=== PATIENT | female | born 1940 | race Caucasian/White ===

== ENCOUNTER 2018-06-25 05:26 | Inpatient (IN) ==
--- NOTE | 2018-06-24 17:02 | MH ---
cc: Keaton Schwartz MD DATE OF ADMISSION: 06/25/2018 The patient will be admitted to the hospital on 06/25/2018. ADMITTING DIAGNOSIS: Full-thickness rotator cuff tear of the left shoulder. HISTORY OF PRESENT ILLNESS: The patient is a 77-year-old white female who has experienced at least a 3-month history of pain involving the left shoulder area. She had originally associated the onset of her symptoms with history of blunt trauma when she was walking through a doorway and hit the side of the door along the anterior aspect of the left shoulder, noting the immediate onset of pain. She did not fall with that event. She thereafter conformed to conservative management, which included use of BenGay to the shoulder area and taking Tylenol, neither of which afforded her any long-term benefit. Because of her lingering symptoms, she subsequently was seen in the office in March of this year and at that time advised that she had received at least 1 course of acupuncture therapy did not prove to have any appreciable benefit. Her x-ray studies at the time of her office evaluation were without evidence of any acute bony abnormality. The patient was diagnosed as having a bursitis of her left shoulder for which she received a local steroid injection and was thereafter followed on an outpatient basis. Unfortunately, her symptoms lingered and she subsequently underwent an MRI scan evaluation for further evaluation of her shoulder symptoms. Findings at that time identified a massive full-thickness rotator cuff tear involving essentially all of the supraspinatus and infraspinatus tendons. There was associated atrophy of the muscle bellies and moderate to severe osteoarthritis of the glenohumeral joint, a chronic degenerative appearing tear of the labrum and a torn long head biceps tendon retracted to the level of the mid groove, a type 3 acromion with moderate subacromial spurring and moderate osteoarthritis of the acromioclavicular joint was noted. The findings of the scan were reviewed and treatment options discussed with the patient at that time. The pros and cons of continuing with conservative management versus operative intervention involving a reverse shoulder arthroplasty were outlined in detail. Emphasis was made regarding the fact that the decision to proceed with surgery would be left entirely to the patient's discretion. The patient readily admitted that she was experiencing considerable incapacitation regarding all activities of daily living and was desirous of proceeding with surgery as discussed. In compliance with her wishes, she was scheduled for admission at this time in order that the above be accomplished. She is left hand dominant. PAST MEDICAL HISTORY: Hospitalizations and surgeries have included bilateral cataract excision, partial bowel resection with temporary colostomy, cholecystectomy, colonoscopy, D and C, bilateral total knee arthroplasties, and excision of a benign cyst of the right breast. CURRENT MEDICATIONS: 1. Omeprazole 20 mg daily. 2. Pravastatin 40 mg daily. 3. Stool softener daily. 4. Multivitamin tablet daily. 5. Low-dose Tata aspirin daily. 6. Vitamin B12. 7. Calcium 600 mg daily. 8. Iron supplement 45 mg daily. ALLERGIES: THE PATIENT DESCRIBES A DRUG ALLERGY TO PENICILLIN, WHICH HAS CAUSED ITCHING. SHE HAS HAD A REACTION TO TETANUS, CAUSING RASH AND SWELLING AND SOME DEGREE OF ITCHING AND SHE HAS A FOOD INTOLERANCE TO EGGS, WHICH HAS BEEN ASSOCIATED WITH NAUSEA. REVIEW OF SYSTEMS: She does wear glasses for reading purposes. Denies headache, seizure, or syncope. No sinus congestion. Auditory acuity intact. No tinnitus. No bleeding gums or dysphagia. No cough, shortness of breath, upper respiratory infection, pneumonia, or tuberculosis. No angina or heart disease. Appetite is good. She does experience occasional constipation treated with various [id number] medications. No hepatitis. Status post cholecystectomy. Positive history of hemorrhoids. She has had previous urinary tract infection, no kidney stones. No fractures. No psychiatric illness. Remaining review of systems is unremarkable and noncontributory. FAMILY HISTORY: 57 years, is 79 years of age, in good health. Two sons and 2 daughters indicated to be in good health. Family history is positive for hypertension, Alzheimer's disease and stroke. SOCIAL HISTORY: The patient completed a high school education with additional college credits. She has been a smoker for approximately 58 years, averaging less than 1 pack per day. Ethanol consumption socially. PHYSICAL EXAMINATION: VITAL SIGNS: Height 5 feet 4-1/2 inches, weight 174 pounds. GENERAL: An alert, oriented, and responsive 77-year-old white female who sits quietly upon the examination table with no obvious distress. HEAD, EARS, EYES, NOSE AND THROAT: Pupils are equally round and reactive to light. Extraocular movements full. Sclerae are clear. External nares clear. External auditory canals clear. Dental intact with temporary retainer in the maxillary region. Mucous membranes pink and moist. Pharynx clear. NECK: Supple. Active range of motion. No appreciable pain. Carotid pulse is palpable bilaterally. Trachea midline. Thyroid without thyroid enlargement. LUNGS: Clear to auscultation and percussion. CHEST: No CVA tenderness. BACK: No discomfort throughout the dorsolumbar spine. HEART: Regular irregular rhythm with a grade 2/6 systolic murmur heard best at the right second intercostal space. ABDOMEN: Soft, nontender. Bowel sounds present. PELVIC: Per primary care physician. EXTREMITIES: Left shoulder: There is mild tenderness about the anterior and superior aspect of the left shoulder without palpable deformity. The patient is unable to actively elevate her left hand above her head level secondary to pain about the shoulder joint. Internal rotation to the posterior waist level. Cross arm positioning of left hand to the right shoulder with discomfort towards the extremes of motion. No sensation of crepitation or instability about the glenohumeral joint. Drop arm test positive. Weakness of external rotation. Dairy Quality Assurance Officer strength intact. Sensory intact. NEUROLOGIC: Cranial nerves 2-12 grossly intact. IMPRESSION: Full-thickness rotator cuff tear, left shoulder. PLAN: Left reverse shoulder arthroplasty. The nature of the planned surgical procedure, the potential complications and risks associated, the expectations of surgery and the consent form have been thoroughly reviewed with the patient at this time. Luz Maria has indicated her full understanding regarding all of the above and given consent to proceed with treatment as outlined. Medical evaluation and clearance for surgery completed by her primary care physician, Dr. Giuseppe Ortez. MD ADRIANE Ervin/es , 04:36 PM , 04:50 PM
[~2018-06-25 05:26] MED LIST: Vancomycin Inj 1,000 MG in Sodium Chlor 0.9% Inj 250 ML IV.SIG PRN
[2018-06-25] MEDS ORDERED: Sodium Chlor 0.9% Inj 250 ML ONE ×2 (06:12→06:14)
[2018-06-25] MEDS ORDERED: Sugammadex Inj 200 MG/2 ML Vial IV.PUSH ONE (06:20)
[2018-06-25] MEDS ORDERED: Chlorhexidine Gluconate 2% 1 Pack (2 Cloths) TOPICAL ONE (06:41)
[2018-06-25] MEDS ORDERED: Metoprolol Tartrate 25 MG Tablet PO ONE (06:41)
[2018-06-25] MEDS ORDERED: Tranexamic Acid Inj 800 MG in Sodium Chlor 0.9% Inj 100 ML IV.SIG SCH ×2 (07:00→10:00)
[2018-06-25] MEDS ORDERED: Sodium Chlor 0.9% Inj 500 ML IV.SIG SCH (07:00)
--- NOTE | 2018-06-25 07:40 | ECG ---
Date Performed: 06/25/2018 Time Performed: 06:24:32 PTAGE: 77 years EKG: Sinus rhythm with frequent PVCs Abnormal ECG NO PREVIOUS TRACING DOCTOR: Jason Weir Interpretating Date/Time 06/25/2018 07:40:02
[2018-06-25] MEDS ORDERED: fentaNYL Citrate Inj 100 MCG/2 ML Ampul ONE (09:46)
[2018-06-25] MEDS ORDERED: Morphine Inj 4 MG/ML Vial IV.PUSH PRN (09:51)
[2018-06-25] MEDS ORDERED: Morphine Inj 4 MG/ML Vial IV.SIG ONE (09:51)
[2018-06-25] MEDS ORDERED: Acetaminophen 325 MG Tablet PO PRN (09:51)
[2018-06-25] MEDS ORDERED: Zolpidem Tartrate 5 MG Tablet PO PRN (09:51)
[2018-06-25] MEDS ORDERED: Naloxone Inj 0.4 MG/ML Vial IV.PUSH PRN (09:51)
[2018-06-25] MEDS ORDERED: Tranexamic Acid Inj 1,000 MG in Sodium Chlor 0.9% Inj 100 ML IV.SIG ONE (09:51)
[2018-06-25] MEDS ORDERED: Bisacodyl 10 MG Supp RECTAL PRN (09:51)
[2018-06-25] MEDS ORDERED: Aluminum/Magnesium/Simethacone Susp 30 ML UDC PO PRN (09:51)
[2018-06-25] MEDS ORDERED: Post-op Orders (for Pharmacy) OTHER STA (09:51)
--- NOTE | 2018-06-25 09:56 | P.DCO ---
- Diagnosis (1) Full thickness rotator cuff tear Status: Acute - Occupational Therapy Order: Evaluate and treat, Improve ADL, Gross motor coordination, Fine motor coordination - Home Health Nursing Order: Wound care and dressing changes, Nursing assessment with vital signs - Home Health Aide Order: To assist in: Bathing and personal care, digital press operator and meal prep - Case Management Consult Case Management Consult-Home Health: Yes - Certification I have seen patient Radha Ang on 06/25/18. My clinical findings support the need for the requested home health care services because: Limited ability to care for self, High risk of falls I certify that my clinical findings support that this patient is homebound because: Post-op weakness, Unsteady gait/balance, Unsafe to leave home unassisted (1) Full thickness rotator cuff tear Qualifiers: Laterality: left Qualified Code(s): M75.122 - Complete rotator cuff tear or rupture of left shoulder, not specified as traumatic
--- NOTE | 2018-06-25 10:21 | MP ---
cc: Keaton Schwartz MD DATE OF OPERATION: 06/25/2018 PREOPERATIVE DIAGNOSIS: Full-thickness rotator cuff tear of the left shoulder. POSTOPERATIVE DIAGNOSIS: Full-thickness rotator cuff tear of the left shoulder. PROCEDURE PERFORMED: Left reverse shoulder arthroplasty. SURGEON: Keaton Schwartz MD ANESTHESIA: General endotracheal. INDICATIONS: A 77-year-old white female with a 3-month history of progressive pain of the left shoulder. She had noted the onset of her symptoms following a history of blunt trauma, when she was walking through a doorway, and hit the side of the door along the anterior aspect of her left shoulder, noting the immediate onset of pain. She did not fall with that event. She, thereafter, conformed to conservative management, which included use of Orville-Ji and taking Tylenol, neither of which afforded her any long-term benefit. Because of her lingering symptoms, she was subsequently seen in the office in March of this year, and at that time, she noted that she had received at least 1 course of acupuncture therapy, in addition to treatment as noted above. She remains symptomatic with pain. Her x-ray studies were without evidence of any acute bony abnormality. The patient was diagnosed as having bursitis of the left shoulder, for which she received a local steroid injection, and was thereafter followed on an outpatient basis. Her symptoms lingered and she later underwent an MRI scan, the results of which identified a massive full-thickness rotator cuff tear involving essentially all of the supraspinatus and infraspinatus tendons with associated atrophy of the muscle bellies, and a moderate to severe osteoarthritis of the glenohumeral joint, a chronic degenerative-appearing tear of the labrum, and torn long head biceps tendon retracted to the level of the mid groove, a type 3 acromion with moderate subacromial spurring, and moderate osteoarthritis of the acromioclavicular joint. Findings of the scan reviewed and treatment options discussed. The pros and cons of continuing with conservative management versus operative intervention involving a reverse shoulder arthroplasty were outlined in detail. Emphasis was made regarding the fact that the decision to proceed with surgery would be left entirely to the patient's discretion. The patient readily admitted that she was experiencing considerable incapacitation regarding all activities of daily living, and was desirous of proceeding with surgery as discussed. In compliance with her wishes, she was scheduled for admission at this time in order that the above be accomplished. FORMAT: Following the induction of satisfactory general anesthesia by endotracheal intubation as completed per the department of anesthesia, the patient was positioned upon the operating table in a modified beach chair configuration. The left shoulder and upper extremity proper were isolated with a U-drape, thereafter being prepped with Betadine solution, and draped into a sterile field in the routine manner. Prior to initiation of the actual procedure, the standard timeout protocol was completed. All parameters were appropriately addressed and confirmed by operating room personnel. A standard anterior approach to the shoulder was initiated through a sharp skin incision directly overlying the deltopectoral interval, and being extended from the inferior border of the clavicle over the coracoid process, and distally to the axillary crease. The incision was developed through underlying subcutaneous tissue with hemostasis maintained by electrocautery. By deepening dissection, the deltopectoral interval was developed. The cephalic vein was identified and retracted laterally with the deltoid musculature. Progressive dissection facilitated exposure of the anterior joint space. The 3 sister circumflex vessels were clamped and coagulated. With the shoulder maintained in a slightly externally rotated orientation, the subscapularis tendon was divided along its anatomical neck, the medial segment of which was tagged with #1 Tycron suture. The humeral head was delivered into the wound, and at that time, significant degenerative changes were noted with pronounced erosion of articular cartilage and subchondral bone exposed, and hypertrophic bony reaction along the inferior margin of the humeral head. A centering hole was placed in the superior aspect of the humeral head, adjacent to the bicipital groove, and thereafter sequential rasping was accomplished from 6 through 10 mm. With the rasp in place, the external guide was positioned, and the humeral head resected in approximately 30 degrees of retroversion orientation. Sequential broaching was thereafter accomplished from 7 through 10 mm with 10 a mm stem determined to be a satisfactory fit. The covering cap was placed onto the trial stem, and attention was redirected to the glenoid. Retractors were placed superiorly, anteriorly, and posteriorly. The glenoid labrum was resected in its entirety, as well as the superior and middle, inferior, anterior, and superior glenohumeral ligaments. The surface of the glenoid was exposed in a 360-degree orientation. Hash kessler were placed from the 12 to 6 o'clock position, and the 3-9 o'clock position, facilitating orientation of the central portion of the glenoid. A guidepin was placed in approximately 10 degrees of inferior tilt, over which the stepdown reamer was passed, creating a central peg hole. Thereafter, a 25 mm Glenosphere mini baseplate was firmly seated. A 35 mm central screw was placed, and using the guide, two 25 mm locking screws were placed superiorly and inferiorly, and two 15 mm locking screws anteriorly and posteriorly. With the baseplate firmly seated, a 36 mm Glenosphere with maximum inferior offset was firmly attached to the baseplate. Attention returned to the proximal humerus. With the 10 [address] in place, a trial reduction was completed utilizing a 36 x 44 mm bearing insert. The shoulder was reduced, and carried through a passive range of motion with stability being demonstrated throughout the arc of mobility. An open dislocation was completed, and the trial humeral components being removed, the wound was copiously irrigated with antibiotic saline solution, and thereafter, the permanent 10 mm mini humeral stem was firmly seated to which, a 44 mm standard humeral tray was attached with 36 x 44 mm humeral bearing insert. The shoulder was again reduced, and carried through a passive range of motion with stability being demonstrated throughout the arc of mobility. Final irrigation was accomplished with hemostasis maintained. The deltopectoral interval was reapproximated with a running 0 Vicryl suture. The remaining portion of the wound was closed in layers in the routine manner, skin margins being reapproximated with a running subcuticular 3-0 Vicryl suture, over which Steri-Strips were applied. Xeroform gauze and a bulky dry sterile dressing placed. The shoulder supported in an arm sling, anesthesia discontinued, and the patient thereafter transferred to a hospital bed, and returned to the recovery room in satisfactory condition, having tolerated her operative procedure well. ESTIMATED BLOOD LOSS: Approximately 150 mL as determined per anesthesia. IMPLANTS: All implants were of the Biomet verifying specialist. MD ADRIANE rEvin/ , 09:42 AM , 09:55 AM
[2018-06-25] MEDS ORDERED: Morphine Inj 30 MG/30 ML PCA.VIAL PCA ONE (10:34)
[2018-06-25] MEDS: Morphine Inj 30 MG/30 ML PCA.VIAL PCA PRN (11:37)
--- NOTE | 2018-06-25 15:49 | P.CON ---
History of Present Illness Service: Hospitalist Consult date: 06/25/18 Requesting Physician: Keaton Schwartz Reason for Consult: Assist with medical management Primary Care Provider: Giuseppe Ortez MD History of Present Illness: This is a 77 yo female patient with a PMHX significant for dyslipidemia, GERD, osteoarthritis s/p bilateral total knee replacements and full thickness rotator cuff tear of the left shoulder who tried and failed numerous attempts at conservative therapy and underwent an elective left reverse shoulder arthroplasty performed by Dr. Schwartz earlier today. Hospitalist services have been consulted to assist with ongoing medical management. Patient seen and examined. Patient reports her postoperative left shoulder pain is controlled at present. She does not voice any acute medical complaints or concerns. She denies any fever or chills. She denies any chest pain or shortness of breath. She denies any nausea, vomiting or abdominal pain. She denies any constipation , diarrhea or dysuria. She does endorse ongoing tobacco use and states she smokes 5-6 cigarettes daily. Review of Systems All other systems reviewed negative except as stated in HPI PMFSH - History History Provided By: Patient - Medical History Medical History: Medical History (Last Reviewed 06/25/18 @ 15:40 by Vera Maravilla) Anemia Arthritic-like pain Dental root implant present GERD (gastroesophageal reflux disease) High cholesterol Pain of left shoulder joint on movement Presence of partial dental prosthetic device - Surgical History Surgical History: Surgical History (Last Reviewed 06/25/18 @ 15:40 by Vera Maravilla) History of colon resection History of colostomy History of colostomy reversal History of total bilateral knee replacement (TKR) Hx of cataract removal with insertion of prosthetic lens - Family History Family History: Family History (Last Updated 06/25/18 @ 15:41 by Vera Maravilla) Father CVA (cerebral vascular accident) - Social History I have reviewed the patient's Social History: Yes - Tobacco History Second Hand Smoke Exposure: No Tobacco Use In Past 30 Days: Yes Smoking Status: Current every day smoker Tobacco Type: Cigarettes - Alcohol History How Often Do You Have a Drink Containing Alcohol: 2 to 4 times a month - Substance Use History Substance History: No History of Abuse - Travel History Recent Travel in the [place] Within the Last 8 Weeks: No Recent Travel Out of the Country Within the Last 8 Weeks: No Medications and Allergies Active Medications: Active Medications Acetaminophen (Tylenol) 650 mg PO Q6H PRN PRN Reason: FEVER > 102 F Hydrocodone Bitart/Acetaminophen (Sarita 5/325) 1 tab PO Q4H PRN PRN Reason: PAIN LESS THAN 5 ON SCALE Hydrocodone Bitart/Acetaminophen (Sarita 5/325) 2 tab PO Q6H PRN PRN Reason: PAIN SCALE 5 TO 10 Al Hydrox/Mg Hydrox/Simethicone (Mag-Al Plus Susp Liq) 30 ml PO Q6H PRN PRN Reason: INDIGESTION Al Hydroxide/Mg Hydroxide (Milk Of Magnesia Liq) 30 ml PO BID PRN PRN Reason: Mild Constipation Aspirin (Aspirin) 325 mg PO BID [facility] Bisacodyl (Dulcolax Supp) 10 mg RECTAL DAILY PRN PRN Reason: SEVERE CONSITIPATION Calcium/Vitamin D (Oscal With D 250/125 Mg) 1 tab PO BID [facility] Cyanocobalamin (Vitamin B12) 1,000 mcg PO DAILY [facility] Docusate Sodium (Colace) 100 mg PO DAILY [facility] Ferrous Sulfate (Ferosul) 325 mg PO DAILY [facility] Vancomycin HCl 1,000 mg/ (Sodium Chloride) 250 mls @ 250 mls/hr IV.SIG ASSISTANT PROFESSOR OF CRIMINAL JUSTICE PRN PRN Reason: ASSISTANT PROFESSOR OF CRIMINAL JUSTICE TO OR Stop: 06/28/18 04:21 Last Infusion: 06/25/18 08:56 Dose: Infused Lactated Ringer's (Lr 1000 Ml Inj) 1,000 mls @ 30 mls/hr IV.SIG .Q24H [facility] Stop: 06/26/18 06:44 Last Admin: 06/25/18 06:00 Dose: 30 mls/hr Sodium Chloride (Ns Inj) 500 mls @ 30 mls/hr IV.SIG .Q10H [facility] Last Admin: 06/25/18 07:02 Dose: Not Given Lactated Ringer's (Lr 1000 Ml Inj) 1,000 mls @ 80 mls/hr IV.CONT .[id number] [facility] Last Admin: 06/25/18 13:55 Dose: 80 mls/hr Morphine Sulfate (Morphine Inj) 30 mg in 30 mls @ 0 mls/hr [employer] UNSCH PRN PRN Reason: prn pain Last Admin: 06/25/18 11:37 Dose: 0 mls/hr Vancomycin HCl 1,000 mg/ (Sodium Chloride) 250 mls @ 200 mls/hr IV.SIG Q12H [facility] Stop: 06/26/18 07:14 Lactulose (Lactulose Liq) 30 ml PO DAILY PRN PRN Reason: SEVERE CONSITIPATION Miscellaneous Information ([facility] Nursing Information) 0 each OTHER UNSCH PRN PRN Reason: SEE DOSE INSTRUCTIONS Miscellaneous Information ([facility] Nursing Information) 0 each OTHER UNSCH PRN PRN Reason: SEE LABEL COMMENTS Stop: 06/26/18 09:40 Morphine Sulfate (Morphine Inj) 2 mg IV.PUSH Q3H PRN PRN Reason: BREAKTHROUGH PAIN Multivitamins (Theragran) 1 tab PO DAILY [facility] Naloxone HCl (Narcan Inj) 0.4 mg IV.PUSH PRN PRN PRN Reason: Resp rate < 10 Ondansetron HCl (Zofran Inj) 4 mg IV.PUSH Q6H PRN PRN Reason: NAUSEA OR VOMITING Pantoprazole Sodium (Protonix) 20 mg PO DAILY [facility] Povidone Iodine (Betadine 7.5% Scrub) 1 applicatio TOPICAL ONCE [facility] Stop: 06/29/18 04:59 Last Admin: 06/25/18 06:49 Dose: 1 applicatio Pravastatin Sodium (Pravachol) 40 mg PO DAILY [facility] Senna/Docusate Sodium (Nydia-Colace) 1 tab PO BID [facility] Sennosides (Senokot) 17.2 mg PO BID PRN PRN Reason: Moderate Constipation Sodium Chloride (Ns Flush) 2 ml IV.FLUSH BID [facility] Sodium Chloride (Ns Flush) 2 ml IV.FLUSH PRN PRN PRN Reason: FLUSH AFTER USING IV ACCESS Zolpidem Tartrate (Ambien) 5 mg PO HS PRN PRN Reason: INSOMNIA Allergies Allergy/AdvReac Type Severity Reaction Status Date / Time penicillin G Allergy Severe Generalized Unverified 06/13/18 08:30 Rash tetanus toxoid, adsorbed Allergy Severe Blisters Unverified 06/13/18 08:30 AT INJECTION SITE egg Allergy Mild FLU LIKE Verified 06/13/18 08:30 SYMPTOMS Home Medications Medication Instructions Recorded Confirmed Type Ca-D3-mag [id number]-bor 1 tab PO BID 06/13/18 06/25/18 History [Calcium 600-D3 Plus] aspirin [Adult Low Dose Aspirin] 81 mg PO DAILY 06/13/18 06/25/18 History cranberry fruit concentrate 450 mg PO DAILY 06/13/18 06/25/18 History [cranberry] cyanocobalamin (vitamin B-12) 1,000 mcg PO DAILY 06/13/18 06/25/18 History [Vitamin B-12] docusate sodium [Stool Softener] 100 mg PO DAILY 06/13/18 06/25/18 History ferrous sulfate [High Potency Iron] 1 tab PO DAILY 06/13/18 06/25/18 History multivit with min-folic acid 1 tab PO DAILY 06/13/18 06/25/18 History [Adult One Daily Multivitamin] omeprazole 20 mg PO DAILY 06/13/18 06/25/18 History pravastatin 40 mg PO DAILY 06/13/18 06/25/18 History Physical Exam Vital signs: Vital Signs 06/25/18 06:12 06/25/18 06:58 06/25/18 09:39 Temperature 98.3 F 96.6 F L Pulse Rate 75 72 84 Respiratory Rate 18 17 Blood Pressure 153/66 H 128/57 L Pulse Oximetry 98 100 98 06/25/18 09:45 06/25/18 10:00 06/25/18 10:15 Temperature Pulse Rate 79 82 82 Respiratory Rate 17 16 16 Blood Pressure 103/52 L 98/51 L 96/53 L Pulse Oximetry 93 L 94 L 96 06/25/18 10:30 06/25/18 10:45 06/25/18 11:15 Temperature Pulse Rate 83 74 74 Respiratory Rate 15 16 15 Blood Pressure 97/55 L 105/55 L 100/55 L Pulse Oximetry 96 96 95 06/25/18 11:45 06/25/18 12:15 06/25/18 12:50 Temperature 97.7 F Pulse Rate 74 86 81 Respiratory Rate 15 15 15 Blood Pressure 100/52 L 100/51 L 97/56 L Pulse Oximetry 95 95 98 06/25/18 13:42 Temperature 97.5 F L Pulse Rate 83 Respiratory Rate 18 Blood Pressure 102/60 Pulse Oximetry 96 Intake & Output 06/24/18 06/25/18 06/25/18 18:59 06:59 18:59 Intake Total 1000 / 1000 Output Total 150 / 150 Balance 850 / 850 Weight 80.4 kg Intake: IV 358 / 358 Cyklokapron Inj 800 MG In NS 108 / 108 Inj 100 ML @ 200 mls/hr IV.SIG ONCE [facility] Rx#:[id number] Vancomycin Inj 1,000 MG In NS 250 / 250 Inj 250 ML @ 250 mls/hr IV.SIG ASSISTANT PROFESSOR [employer] PRN Rx#:[id number] Anesthesia Amount 642 / 642 Output: Estimated Blood Loss 150 / 150 Other: Weight On Admission 80.4 kg Narrative: GENERAL: WDWN overweight female patient INAD. Awake and alert. Appears comfortable sitting in bedside chair. SKIN: Warm and dry. No rash. +Well healed anterior midline knee surgical incisions bilateral knees c/w previous TKRs. HEAD: Atraumatic. Normocephalic. EYES: Pupils equal and round. No scleral icterus. No injection or drainage. ENT: No nasal bleeding or discharge. Mucous membranes pink and moist. NECK: Trachea midline. CARDIOVASCULAR: Regular rate and rhythm. +Murmur auscultated. RESPIRATORY: No accessory muscle use. Clear to auscultation. Breath sounds equal bilaterally. GASTROINTESTINAL: Abdomen soft, non-tender, nondistended. +BS. MUSCULOSKELETAL: Extremities without clubbing, cyanosis, or edema. s/p Left shoulder surgery, LUE in sling, NV intact distally, postop dressing C/D/I. Good fish egg packer strength left hand. NEUROLOGICAL: Awake and alert. No obvious cranial nerve deficits. Able to move all extremities spontaneously. Normal speech. PSYCHIATRIC: Appropriate mood and affect; insight and judgment normal. Assessment and Plan - Plan 77 yo female patient with a PMHX significant for dyslipidemia, osteoarthritis s/ p bilateral total knee replacements and full thickness rotator cuff tear of the left shoulder who tried and failed numerous attempts at conservative therapy and underwent an elective left reverse shoulder arthroplasty performed by Dr. Schwartz earlier today. Hospitalist services have been consulted to assist with ongoing medical management. Full thickness rotator cuff tear left shoulder s/p elective left reverse shoulder arthroplasty -Management per orthopedic service -pain management with bowel regimen -monitor wound for healing -monitor for postoperative anemia and/or electrolyte imbalance -PT/OT eval/tx Hypotension, asymptomatic, suspect anesthesia/pain medication side effect -monitor BP Dyslipidemia -continue on home dose of Pravachol GERD -continue on PPI Ongoing tobaccoism -discussed smoking cessation/counseling offered DVT prophylaxis -per Ortho service Thank you very kindly for this consultation. We will continue to follow patient along with you. Discussed Condition With: patient, nursing staff Discharge Planning: discharge disposition per primary team
--- NOTE | 2018-06-25 15:52 | XR ---
EXAM DATE: 06/25/2018 3:48 PM EST AGE/SEX: 77 years / Female INDICATIONS: Post op left shoulder surgery. CLINICAL DATA: This is the patient's initial encounter. Patient reports that signs and symptoms have been present for 1 day and indicates a pain score of Nonresponsive. MEDICAL/SURGICAL HISTORY: None. None. COMPARISON: No prior exams available for comparison. FINDINGS: The patient is post left shoulder on left. Orthopedic hardware is in excellent position. CONCLUSION: Orthopedic hardware in excellent position. Electronically signed by: Patricio Lao MD 06/25/2018 3:50 PM EST
[2018-06-25] MEDS: Vancomycin Inj 1,000 MG in Sodium Chlor 0.9% Inj 250 ML IV.SIG SCH (17:17)
[2018-06-25] MEDS: Calcium/Vitamin D 250/125 MG Tablet PO SCH (21:47)
[2018-06-25] MEDS: Aspirin 325 MG Tablet PO SCH (21:47)
[2018-06-25] MEDS: Senna/Docusate Sodium 8.6/50 MG Tablet PO SCH (21:47)
[2018-06-26] MEDS: Vancomycin Inj 1,000 MG in Sodium Chlor 0.9% Inj 250 ML IV.SIG SCH (05:22)
[2018-06-26 06:46] LABS: Baso % (Auto) 0.4 % (0.0-2.0); Eos # (Auto) 0.1 th/mm3 (0.0-0.4); Eos % (Auto) 0.6 % (0.0-4.0); Hematocrit 35.9 % (35.0-46.0); Lymph # (Auto) 2.3 th/mm3 (1.0-4.8); Lymph % (Auto) 18.1 % (9.0-44.0); Mean Corpuscular HGB Conc 33.4 % (32.0-36.0); Mean Corpuscular Hemoglobin 34.2 pg (27.0-34.0); Mean Corpuscular Volume 102.5 fL (80.0-100.0); Mean Platelet Volume 9.7 fL (7.0-11.0); Mono # (Auto) 1.7 th/mm3 (0.0-0.9); Mono % (Auto) 13.6 % (0.0-8.0); Neut # (Auto) 8.4 th/mm3 (1.8-7.7); Neut % (Auto) 67.3 % (16.0-70.0); Platelet Count 149 th/mm3 (150-450); Red Cell Distribution Width 14.7 % (11.6-17.2); White Blood Count 12.5 th/mm3 (4.0-11.0)
[2018-06-26 07:10] LABS: Calcium 8.6 mg/dL (8.5-10.1); Carbon Dioxide 29.1 meq/L (21.0-32.0); Potassium 3.9 meq/L (3.5-5.1)
[2018-06-26] MEDS: Morphine Inj 30 MG/30 ML PCA.VIAL PCA PRN (07:16)
--- NOTE | 2018-06-26 08:08 | MD ---
cc: Keaton Schwartz MD, Danny M MD DATE OF DISCHARGE: 06/26/2018 ADMITTING DIAGNOSIS: Full-thickness rotator cuff tear of the left shoulder. DISCHARGE DIAGNOSES: 1. Full-thickness rotator cuff tear of the left shoulder. 2. Osteoarthritis of the left shoulder. HISTORY: The patient is a 77-year-old white female with a three-month history of progressive left shoulder pain as related to a history of blunt trauma when she was walking through a doorway and hit the side of the door along the anterior aspect of her left shoulder with the immediate onset of pain being noted. She did not fall without event. She conformed to conservative management initially utilizing BenGay and taking Tylenol, neither of which afforded her any benefit. Because of her lingering symptoms, she was later seen in the office in March of this year and at that time she reported that she had received at least 1 course of acupuncture therapy that did not afford her any appreciable benefit. Her current x-ray studies were without evidence of any acute bony abnormality. The patient was diagnosed as having a bursitis of her left shoulder for which she received a local steroid injection, was thereafter followed on an outpatient basis. Unfortunately, her symptoms lingered and she later underwent an MRI scan, the results of which identified a massive full-thickness rotator cuff tear involving essentially all of the supraspinatus and infraspinatus tendons. There was associated atrophy of the muscle bellies and [id number] osteoarthritis of the glenohumeral joint and a chronic degenerative-appearing tear of the labrum and a torn long head biceps tendon retracted to the level of the mid groove, a type 3 acromion with moderate subacromial spurring and moderate osteoarthritis of the acromioclavicular joint. These findings were reviewed with the patient. Treatment options discussed. The pros and cons of continuing with conservative management versus operative intervention that would involve a reverse shoulder arthroplasty were outlined in detail. Emphasis was made regarding the fact that the decision to proceed with surgery would be left entirely to the patient's discretion. The patient readily admitted that she was quite eager to proceed accordingly and in compliance with her wishes, she was scheduled for admission at this time in order that the above be accomplished. Her physical examination at the time of admission revealed mild tenderness about the anterior and superior aspect of the left shoulder. There was no associated palpable deformity. The patient was unable to actively elevate her left hand above the head level secondary to pain about the shoulder joint. Internal rotation was limited to the posterior waist level. Cross arm positioning of left and right shoulder with discomfort towards the extremes of motion. No sensation of crepitation or instability about the glenohumeral joint. Drop arm test positive. Weakness of external rotation. Furnishings Conservator strength intact. Sensory intact. HOSPITAL COURSE: Prior to admission to the hospital, the patient had undergone medical evaluation and clearance for surgery as completed by her primary care physician, Dr. Giuseppe Ortez. She was taken to the operating room on 06/25/2018 and on that day underwent a left reverse shoulder arthroplasty completed in an uncomplicated manner. The patient was noted to have tolerated her operative procedure well. Her postoperative course was stable thereafter. She was progressively mobilized under the guidance of therapy intervention with instruction to limit external rotation to no more than 45 degrees for the initial 6 weeks following surgery and thereafter being permitted to progress as tolerated. healthcare advisory services manager was consulted to assist with discharge planning. The patient had indicated her desire to be discharged home and continue her rehabilitation on an outpatient basis. Plans were finalized in this regard and she was subsequently scheduled for discharge on the first postoperative day, at which time she was noted to be in a stable condition. She was scheduled to be seen in office followup in approximately 4 weeks. DISCHARGE MEDICATIONS: Included hydrocodone 5/325 mg, #30, aspirin 325 mg 1 tab twice daily for 3 weeks, #40. MD ADRIANE Ervin/sv , 06:46 AM , 06:55 AM
[2018-06-26] MEDS ORDERED: Pantoprazole Sodium 20 MG DR Tablet PO SCH (09:00)
[2018-06-26] MEDS ORDERED: Ferrous Sulfate 325 MG Tablet PO SCH (09:00)
[2018-06-26] MEDS ORDERED: Docusate Sodium 100 MG Capsule PO SCH (09:00)
[2018-06-26] MEDS: Aspirin 325 MG Tablet PO SCH (09:14)
[2018-06-26] MEDS: Calcium/Vitamin D 250/125 MG Tablet PO SCH (09:15)
[2018-06-26] MEDS: Senna/Docusate Sodium 8.6/50 MG Tablet PO SCH (09:15)
[2018-06-26 09:35] VITALS: BP 146/63; PULSE 84; RESP 18; TEMP 97.5; O2SAT 91
== END 2018-06-26 13:00 | disposition home health service (06) ==
LOC: HSDI 05:26 → N06 13:16
PROVIDERS: ADMIT Orthopaedic Surgery; ATTEND Orthopaedic Surgery